=== PATIENT | female | born 1950 | race Caucasian/White ===

== ENCOUNTER 2017-09-15 08:12 | Day surgery (SDC) | payer OTHER ==
[2017-09-15] MEDS ORDERED: D5 LR 1000 ML 1,000 ML IV ONE (08:31)
[2017-09-15] MEDS ORDERED: DIPRIVAN VIAL 20 ML ONE (10:55)
[2017-09-15 11:41] VITALS: BP 150/64
== END 2017-09-15 11:40 | disposition home or self-care (01) ==
LOC: SURG1 08:12
PROVIDERS: ATTEND Internal Medicine Gastroenterology
PROC: 0DJD8ZZ Inspection of Lower Intestinal Tract, Via Natural or Artificial Opening Endoscopic (ICD-10-PCS; principal; 2017-09-15 09:45)
DX: Z12.11 Encounter for screening for malignant neoplasm of colon (principal); Q27.33 Arteriovenous malformation of digestive system vessel; K64.0 First degree hemorrhoids
CPT/HCPCS: A4217; J3490; J7120